=== PATIENT | male | born 1950 | race Caucasian/White ===

== ENCOUNTER → 2024-07-01 08:32 | Outpatient (REF) | payer OTHER, SELFPAY | LOC: HWRAD 08:32 | PROVIDERS: ATTENDING PHYSICIAN Family Medicine | DX: N20.0 Calculus of kidney (principal); D73.4 Cyst of spleen | CPT/HCPCS: 76700 ==

== ENCOUNTER → 2025-04-09 06:47 | Outpatient (REF) | payer OTHER, SELFPAY | LOC: RAD 06:47 | PROVIDERS: ATTENDING PHYSICIAN Family Medicine | DX: I87.2 Venous insufficiency (chronic) (peripheral) (principal) | CPT/HCPCS: 93971 ==